=== PATIENT | female | born 1940 | race Caucasian/White ===

== ENCOUNTER 2023-09-20 15:51 | Inpatient (IN) | payer OTHER ==
[~2023-09-20] VITALS: Ht 152.4 cm; Wt 87.3 kg
[2023-09-20 16:11] VITALS: PULSE 68; RESP 22; O2SAT 91
[2023-09-20] MEDS: IPRATROPIUM BROM 0.5 MG/2.5ML INH SOL NEB ONE (16:16)
[2023-09-20] MEDS: ALBUTEROL SULF 2.5 MG/0.5ML(0.5%) NEB SOLN NEB ONE (16:16)
[2023-09-20] MEDS: SODIUM CHLORIDE 0.9% 1,000 ML IV ONE (16:21)
[2023-09-20] MEDS: DexAMETHasone SOD PHOS 10MG/1ML VIAL INJ IV ONE (16:22)
[2023-09-20 16:41] LABS: Basophils # (auto) 0.1 10 ^3/uL (0-0.2); Basophils % (auto) 1.4 % (0.0-2.0); Eosinophils # (auto) 0 10 ^3/uL (0-0.8); Eosinophils % (auto) 0.3 % (0.0-7.0); Hematocrit 36.1 % (36.0-46.0); Hemoglobin 11.8 g/dL (12.2-16.2); Lymphocytes # (auto) 1.3 10 ^3/uL (0.4-5.4); Lymphocytes % (auto) 31.3 % (10.0-50.0); Mean Corpuscular Hemoglobin 30.3 pg (28.0-32.0); Mean Corpuscular Hgb Conc. 32.8 g/dL (32.0-36.0); Mean Corpuscular Volume 92.5 fL (80.0-100.0); Monocytes # (auto) 0.6 10 ^3/uL (0-1.3); Monocytes % (auto) 13.9 % (0.0-12.0); Neutrophils # (auto) 2.1 10 ^3/uL (1.6-8.6); Neutrophils % (auto) 53.1 % (37.0-80.0); Nucleated Red Blood Cells % 0.1 %; Red Cell Distribution Width 13.1 % (11.8-14.3)
[2023-09-20 16:58] LABS: Alanine Aminotransferase 16 U/L (7-40); Albumin 3.7 g/dL (3.2-4.8); Alkaline Phosphatase 69 U/L (46-116); Anion Gap 9 (5-15); Aspartate Aminotransferase 20 U/L (13-40); BUN/Creatinine Ratio 17.8 (10.0-20.0); Bilirubin, Total 0.5 mg/dL (0.2-1.0); Blood Urea Nitrogen 35 mg/dL (9-23); Calcium 8.8 mg/dL (8.7-10.4); Carbon Dioxide 21 mmol/L (20-30); Chloride 109 mmol/L (98-107); Glucose 104 mg/dL (74-106); Lipase 19 U/L (12-53); Potassium 3.7 mmol/L (3.5-5.1); Sodium 139 mmol/L (136-145); Total Protein 6.8 g/dL (5.7-8.2)
[2023-09-20 17:01] LABS: INR 1.03 (0.9-1.15); Prothrombin Time 10.9 sec (9.3-11.8)
[2023-09-20 17:33] LABS: COVID19 ANTIGEN SOFIA FIA NEGATIVE (NEGATIVE)
[2023-09-20 23:12] LABS: Urine Bacteria None Seen /hpf (None Seen)
[2023-09-20 23:25] LABS: Urine Blood Negative /uL (Negative); Urine Clarity Turbid (Clear); Urine Color Yellow (Yellow); Urine Hyaline Cast FEW /lpf (0 - 2); Urine Mucus FEW (None Seen); Urine Protein, UAD TRACE (Negative); Urine Specific Gravity 1.015 (1.001-1.035); Urine Urobilinogen Normal (Negative); Urine WBC 56 /hpf (0 - 5)
[2023-09-21] VITALS: PULSE 61
[2023-09-21] MEDS: OXYCODONE W/ ACETAMINOPHEN 5/325MG TABLET PO ONE (00:11)
[2023-09-21] MEDS: levoFLOXacin 750MG 150 ML IV ONE (00:19)
[2023-09-21 07:42] VITALS: PULSE 66; RESP 18; O2SAT 99
[2023-09-21] MEDS: ACETAMINOPHEN 500 MG TAB PO ONE (08:47)
[2023-09-21] MEDS ORDERED: levoFLOXacin 500MG 100 ML IV ONE (14:00)
[2023-09-21 14:55] LABS: INR 1.03 (0.9-1.15); Prothrombin Time 10.9 sec (9.3-11.8)
[2023-09-21] MEDS: FUROSEMIDE 20 MG/2 ML VIAL IV SCH (15:20)
[2023-09-21] MEDS: ENOXAPARIN SOD 100 MG/1 ML SYRINGE SC SCH (15:20)
[2023-09-21] MEDS ORDERED: MORPHINE SULFATE INJ 2 MG/ml SYRG IV PRN (15:30)
[2023-09-21] MEDS ORDERED: NITROGLYCERIN 0.4 MG SL TAB SL PRN (15:30)
[2023-09-21] MEDS ORDERED: ATOR-507 PO (16:12)
[2023-09-21] MEDS ORDERED: ASPI1TAB19 PO (16:12)
[2023-09-21] MEDS ORDERED: ALL100T PO (16:12)
[2023-09-21] MEDS ORDERED: CARV-216 PO (16:12)
[2023-09-21] MEDS ORDERED: ISOS1TAB29 PO (16:12)
[2023-09-21] MEDS ORDERED: FERR-7 PO (16:12)
[2023-09-21] MEDS ORDERED: TOLT2CAP PO (16:12)
[2023-09-21] MEDS ORDERED: CLOP75TA70 PO (16:12)
[2023-09-21] MEDS ORDERED: MECL-90 PO (16:12)
[2023-09-21] MEDS ORDERED: AML5T PO (16:12)
[2023-09-21] MEDS ORDERED: RANO10003 PO (16:12)
[2023-09-21] MEDS ORDERED: OXYC325T14 PO (16:12)
[2023-09-21] MEDS ORDERED: OLME20TA53 PO (16:12)
[2023-09-21 19:15] VITALS: PULSE 57; RESP 13; O2SAT 100
[2023-09-21] MEDS: levoFLOXacin 250MG 50 ML IV SCH (22:00)
[2023-09-21] MEDS: ATORVASTATIN 20 MG TAB PO SCH (22:00)
[2023-09-21 23:23] VITALS: BP 156/72; PULSE 62; RESP 18; TEMP 97.9; O2SAT 99
[2023-09-22] VITALS (8 sets, daily range): BP systolic 109–154; BP diastolic 46–74; PULSE 54–75; RESP 14–20; TEMP 97.4–98.8; O2SAT 92–100
[2023-09-22] MEDS ORDERED: TOLT1CAP29 PO (01:03)
[2023-09-22] MEDS ORDERED: PANT40T PO (01:03)
[2023-09-22] MEDS ORDERED: AMLO1TAB22 PO (01:03)
[2023-09-22] MEDS ORDERED: OXYC-963 (01:03)
[2023-09-22] MEDS ORDERED: ISO60SRT PO (01:03)
[2023-09-22] MEDS ORDERED: ATOR40TA52 PO (01:03)
[2023-09-22] MEDS ORDERED: MECL-126 PO (01:03)
[2023-09-22] MEDS ORDERED: ENOXAPARIN SOD 40 MG/0.4 ML SYRINGE SC SCH (10:00)
[2023-09-22] MEDS ORDERED: levoFLOXacin 500MG 100 ML IV SCH (10:00)
[2023-09-22] MEDS: FUROSEMIDE 40 MG/4 ML VIAL IV SCH (10:30)
[2023-09-22 11:12] LABS: Basophils # (auto) 0 10 ^3/uL (0-0.2); Basophils % (auto) 0.5 % (0.0-2.0); Eosinophils # (auto) 0 10 ^3/uL (0-0.8); Hematocrit 35.7 % (36.0-46.0); Hemoglobin 11.9 g/dL (12.2-16.2); Lymphocytes # (auto) 1.7 10 ^3/uL (0.4-5.4); Lymphocytes % (auto) 32.8 % (10.0-50.0); Mean Corpuscular Hgb Conc. 33.5 g/dL (32.0-36.0); Mean Corpuscular Volume 92.7 fL (80.0-100.0); Monocytes # (auto) 0.6 10 ^3/uL (0-1.3); Monocytes % (auto) 11.3 % (0.0-12.0); Neutrophils # (auto) 2.9 10 ^3/uL (1.6-8.6); Neutrophils % (auto) 55.4 % (37.0-80.0); Nucleated Red Blood Cells % 0.2 %; Red Blood Cells 3.85 10^6/uL (4.0-5.20); Red Cell Distribution Width 13.1 % (11.8-14.3); White Blood Cell 5.2 10^3/uL (4.4-10.8)
[2023-09-22 11:25] LABS: Alanine Aminotransferase 18 U/L (7-40); Albumin 3.9 g/dL (3.2-4.8); Alkaline Phosphatase 67 U/L (46-116); Anion Gap 7 (5-15); Aspartate Aminotransferase 18 U/L (13-40); BUN/Creatinine Ratio 16.1 (10.0-20.0); Blood Urea Nitrogen 19 mg/dL (9-23); Calcium 9.2 mg/dL (8.5-10.1); Carbon Dioxide 23 mmol/L (20-30); Chloride 114 mmol/L (98-107); Cholesterol 124 mg/dL (< 200); Creatine Kinase IFCC 72 U/L (34-145); Glucose 98 mg/dL (74-106); HDL Cholesterol 38 mg/dL (40-59); LDL Cholesterol 59 mg/dL (< 100); Magnesium 1.6 mg/dL (1.6-2.6); Potassium 3.9 mmol/L (3.5-5.1); Sodium 144 mmol/L (136-145); Triglycerides 100 mg/dL (< 150)
[2023-09-22 11:26] LABS: Bilirubin, Total 0.5 mg/dL (0.2-1.0); Total Protein 6.9 g/dL (5.7-8.2)
[2023-09-22] MEDS ORDERED: LEVO500T91 PO (12:13)
[2023-09-22] MEDS ORDERED: FURO1TAB33 PO (12:13)
[2023-09-22] MEDS: CARVEDILOL 12.5 MG TAB PO SCH (22:00)
[2023-09-23] VITALS (9 sets, daily range): BP systolic 99–155; BP diastolic 48–77; PULSE 57–102; RESP 14–20; TEMP 97.9–98.7; O2SAT 96–100
[2023-09-23 01:41] LABS: Protein, Urine 19.1 mg/dL (0.0-11.9)
[2023-09-23 01:44] LABS: Creatinine, Urine 81.38 mg/dL (30.0-125.0)
[2023-09-23 08:19] LABS: Basophils # (auto) 0 10 ^3/uL (0-0.2); Basophils % (auto) 0.6 % (0.0-2.0); Eosinophils # (auto) 0 10 ^3/uL (0-0.8); Eosinophils % (auto) 0.3 % (0.0-7.0); Hematocrit 35.8 % (36.0-46.0); Hemoglobin 11.8 g/dL (12.2-16.2); Lymphocytes % (auto) 44.1 % (10.0-50.0); Mean Corpuscular Volume 94.1 fL (80.0-100.0); Monocytes # (auto) 0.4 10 ^3/uL (0-1.3); Monocytes % (auto) 9.7 % (0.0-12.0); Neutrophils # (auto) 2.1 10 ^3/uL (1.6-8.6); Neutrophils % (auto) 45.3 % (37.0-80.0); Nucleated Red Blood Cells % 0.1 %; Red Cell Distribution Width 12.9 % (11.8-14.3); White Blood Cell 4.6 10^3/uL (4.4-10.8)
[2023-09-23 08:28] LABS: Chloride 111 mmol/L (98-107); Potassium 3.4 mmol/L (3.5-5.1); Sodium 141 mmol/L (136-145)
[2023-09-23 08:29] LABS: Anion Gap 8 (5-15); Calcium 8.9 mg/dL (8.5-10.1); Carbon Dioxide 22 mmol/L (20-30)
[2023-09-23 08:34] LABS: BUN/Creatinine Ratio 10.5 (10.0-20.0); Blood Urea Nitrogen 11 mg/dL (9-23); Glucose 87 mg/dL (74-106)
[2023-09-23 08:35] LABS: Magnesium 1.3 mg/dL (1.6-2.6)
[2023-09-23] MEDS: ISOSORBIDE MONONITRATE ER 60 MG TAB PO SCH (09:22)
[2023-09-23] MEDS: CLOPIDOGREL BISULFATE 75 MG TAB PO SCH (09:22)
[2023-09-23] MEDS: ATORVASTATIN 20 MG TAB PO SCH (09:23)
[2023-09-23] MEDS: ASPirin-EC 81 mg tab PO SCH (09:23)
[2023-09-23] MEDS: ONDANSETRON HCL 4 MG/2 ML VIAL IV PRN (11:57)
[2023-09-23] MEDS: MAGNESIUM SULFATE 1GM/100ML 100 ML IV SCH (13:47)
[2023-09-23] MEDS: POTASSIUM EFFERVESENT TAB 25 MEQ PO ONE ×2 (13:48→15:45)
[2023-09-23] MEDS ORDERED: IOHEXOL 350 MG/ML 100ML IJ ONE ×2 (15:52→17:58)
[2023-09-23] MEDS: ENOXAPARIN SOD 100 MG/1 ML SYRINGE SC SCH (23:32)
[2023-09-24 01:00] VITALS: BP 138/66; PULSE 78; RESP 18; TEMP 97.8; O2SAT 98
[2023-09-24 05:00] VITALS: BP 100/60; PULSE 81; RESP 20; TEMP 98.1; O2SAT 95
[2023-09-24 07:30] VITALS: PULSE 63; PULSE 75; RESP 15; O2SAT 97
[2023-09-24 08:23] LABS: Basophils # (auto) 0.1 10 ^3/uL (0-0.2); Basophils % (auto) 1.2 % (0.0-2.0); Eosinophils # (auto) 0 10 ^3/uL (0-0.8); Hematocrit 33.1 % (36.0-46.0); Lymphocytes # (auto) 2.1 10 ^3/uL (0.4-5.4); Lymphocytes % (auto) 46.8 % (10.0-50.0); Mean Corpuscular Hemoglobin 30.6 pg (28.0-32.0); Mean Corpuscular Hgb Conc. 33.3 g/dL (32.0-36.0); Monocytes # (auto) 0.5 10 ^3/uL (0-1.3); Neutrophils # (auto) 1.8 10 ^3/uL (1.6-8.6); Nucleated Red Blood Cells % 0.4 %; Red Cell Distribution Width 12.8 % (11.8-14.3); White Blood Cell 4.5 10^3/uL (4.4-10.8)
[2023-09-24 08:33] LABS: Chloride 108 mmol/L (98-107); Potassium 3.7 mmol/L (3.5-5.1); Sodium 139 mmol/L (136-145)
[2023-09-24 08:34] LABS: Anion Gap 6 (5-15); Carbon Dioxide 25 mmol/L (20-30)
[2023-09-24 08:35] LABS: Calcium 9.1 mg/dL (8.5-10.1)
[2023-09-24 08:38] VITALS: BP 109/54; PULSE 67; RESP 18; TEMP 98.1; O2SAT 99
[2023-09-24 08:39] LABS: Glucose 113 mg/dL (74-106)
[2023-09-24 08:40] LABS: BUN/Creatinine Ratio 13.8 (10.0-20.0); Blood Urea Nitrogen 17 mg/dL (9-23)
[2023-09-24 08:48] VITALS: BP 135/66; PULSE 78; RESP 18; TEMP 98.5; O2SAT 98
== END 2023-09-24 12:14 | disposition home health service (06) | DRG 682 ==
LOC: ER 15:51 → EDBD 15:51 → ER 09-21 15:25 → TELE 09-21 15:25 → TELE-EAST 09-21 23:10
PROVIDERS: ADMIT Nurse Practitioner Family; ATTEND Internal Medicine
PROC: 02HV33Z Insertion of Infusion Device into Superior Vena Cava, Percutaneous Approach (ICD-10-PCS; principal; 2023-09-23)
PROC: B548ZZA Ultrasonography of Superior Vena Cava, Guidance (ICD-10-PCS; 2023-09-23)
DX: N17.9 Acute kidney failure, unspecified (principal); I50.43 Acute on chronic combined systolic (congestive) and diastolic (congestive) heart failure; J15.69 Pneumonia due to other Gram-negative bacteria; J96.01 Acute respiratory failure with hypoxia; J15.9 Unspecified bacterial pneumonia; J98.11 Atelectasis; N39.0 Urinary tract infection, site not specified; I13.0 Hypertensive heart and chronic kidney disease with heart failure and stage 1 through stage 4 chronic kidney disease, or unspecified chronic kidney disease; E87.70 Fluid overload, unspecified; N18.4 Chronic kidney disease, stage 4 (severe); Z20.822 Contact with and (suspected) exposure to COVID-19; Z68.39 Body mass index [BMI] 39.0-39.9, adult; D72.819 Decreased white blood cell count, unspecified; G89.29 Other chronic pain; I73.9 Peripheral vascular disease, unspecified; M06.9 Rheumatoid arthritis, unspecified; D64.9 Anemia, unspecified; E66.01 Morbid (severe) obesity due to excess calories; E78.5 Hyperlipidemia, unspecified; I25.10 Atherosclerotic heart disease of native coronary artery without angina pectoris; I25.2 Old myocardial infarction; Z95.1 Presence of aortocoronary bypass graft; Z79.82 Long term (current) use of aspirin; Z79.899 Other long term (current) drug therapy; Z79.02 Long term (current) use of antithrombotics/antiplatelets
CPT/HCPCS: 36415; 71045; 71275; 76775; 80048; 80053; 80061; 81001; 82550; 82570; 82962; 83605; 83690; 83735; 83880; 83935; 84156; 84300; 84443; 84484; 85025; 85379; 85610; 87426; 93306; 93970; 94640; G0378; J1100; J1956; J2405